=== PATIENT | female | born 1980 | race Two or more races ===

== ENCOUNTER → 2024-05-28 | Outpatient (CLI) | payer BC, SELFPAY ==
--- NOTE | 2024-05-28 16:45 | CYSPIN_PTH ---
PATIENT: EDDIE DAVIS LOC: [facility] U#:[id number] AGE/SX: 44/F ROOM: RE05/28/[address]: Dr. Lulu Beltre MD : 1980 BED: DIS: 05/28/2024 SPEC #: [id number] RECD: 05/29/24 07:52 STATUS: ADRIÁN ZEPEDA #: [id number] MORELIA: 05/28/24 16:[address]: Lulu Beltre DEPT: CYTOLOGY RECD BY: Tamara De La Torre Tissues: Urine Procedures: Pap Stain (control) Special Stain Group II Cytospin Fluid HEADER OPERATION: Not noted PRE-OP DIAGNOSIS: Gross hematuria TISSUE SUBMITTED: Urine for cytology DIAGNOSIS CYTOLOGY Urine for cytology (cytospin): Negative for high grade urothelial carcinoma (NHGUC), [facility] System Category II. See comment. Trav 05/29/2024 COMMENT This specimen predominantly consists of squamous epithelial cells. The [facility] System for urine cytology diagnostic categorization was used in the evaluation of this case. CYTOLOGY STUDY Slides are reviewed. CYTOLOGY GROSS Received is 10 ml of light yellow cloudy fluid labeled with the patient's name and and designated per the requisition as urine. Submitted for cytology preparation. 05/29/2024 TC:4 CPT: 81846
[2024-05-28 17:55] LABS: Cytology, Body Fluid / CSF SEE PATHOLOGY REPORT
== END | disposition home or self-care (01) ==
PROVIDERS: Referring Provider Urology; Visit Provider Urology
DX: R31.0 Gross hematuria (principal)
CPT/HCPCS: 88108; 88313